=== PATIENT | female | born 1930 | race Caucasian/White ===

== ENCOUNTER 2018-10-23 15:36 | Emergency (ER) | payer OTHER ==
[~2018-10-23] VITALS: Ht 167.6 cm; Wt 87.1 kg
[2018-10-23] MEDS ORDERED: OMEGA-31000 M1 PO ×2 (15:55→15:57)
[2018-10-23] MEDS ORDERED: ASPIR 8181 MG PO (15:56)
[2018-10-23] MEDS ORDERED: CENTRUM SILVER1 EAC2 PO (15:56)
[2018-10-23] MEDS ORDERED: LOPRESSOR50 PO (15:58)
[2018-10-23] MEDS ORDERED: ELIQUIS5 MG PO (15:58)
[2018-10-23] MEDS ORDERED: LOSARTAN-HCTZ1 EAC3 PO (15:59)
[2018-10-23] MEDS ORDERED: CRESTOR20 MG PO (16:00)
[2018-10-23 16:16] LABS: ABSOLUTE EOSINOPHILS 0.1 thou/uL (0.0-0.7); ABSOLUTE LYMPHOCYTES 1.5 thou/uL (0.8-5.3); ABSOLUTE MONOCYTES 0.4 thou/uL (0.0-1.2); ABSOLUTE NEUTROPHILS 2.3 thou/uL (1.6-8.1); BASOPHILS 0.4 %; EOSINOPHILS 2.8 %; HEMATOCRIT 25.2 % (37.0-47.0); HEMOGLOBIN 7.9 gm/dL (12.0-15.0); LYMPHOCYTES 33.7 %; MCH 23.1 pg (26.0-34.0); MCHC 31.5 g/dL (28.0-37.0); MCV 73.4 fL (80.0-100.0); MONOCYTES 9.7 %; MPV 7.4 fl. (7.2-11.1); NUCLEATED RBCS 0 /100WBC; PLATELET COUNT* 255 thou/uL (150-400); POLYS 53.4 %; RBC 3.44 mil/uL (4.20-5.00); RDW-CV 19.2 % (10.5-14.5); WBC 4.3 thou/uL (4.0-11.0)
[2018-10-23 16:23] LABS: APTT 26.4 Seconds (25.0-31.3); CALCIUM 9.6 mg/dL (8.5-10.1); CREATININE 1.2 mg/dL (0.6-1.3); INR 1.1; POTASSIUM 3.1 mmol/L (3.5-5.1); PROTIME 10.8 Seconds (9.20-11.50)
[2018-10-23 16:28] LABS: ALBUMIN 3.4 g/dL (3.4-5.0); TOTAL BILIRUBIN 0.3 mg/dL (<0.1-1.0); TOTAL PROTEIN 6.8 g/dL (6.4-8.2)
[2018-10-23 17:16] VITALS: BP 101/47
--- NOTE | 2018-10-24 15:53 | EKG ---
[place] [address] ELECTROCARDIOGRAM REPORT Name: ARELY ESTEBAN Room: [facility]#: [id number] Admission: 10/23/18 Attend Phys: Discharge: 10/23/18 Date of : 34 Report #: [id number] THIS REPORT FOR: //name// [facility] ED Test Date: 2018-10-23 Test Time: 15:58:12 Pat Name: ARELY ESTEBAN Department: Room: Gender: F Branch Banker: LIBERTAD : [id number] Requested By: Torin Mohr Order Number: [id number] MD: Jet Marcelino Measurements Intervals [place] Rate: 69 P: 16 [place]: 178 QRS: -9 QRSD: 95 T: -16 QT: 371 QTc: 398 Interpretive Statements Sinus rhythm Left ventricular hypertrophy Inferior infarct, age indeterminate Baseline wander in lead(s) V1,V2,V3,V4,V5,V6 No previous ECG available for comparison Electronically Signed On 10-24-2018 15:52:56 HEARING CONSULTANT by Jet Marcelino [email or web address] <ELECTRONICALLY SIGNED> By: Jet Marcelino MD, [facility] 10/24/18 1552 1558 1558 Jet Marcelino MD, [facility] /EPI
== END 2018-10-23 17:18 | disposition home or self-care (01) ==
LOC: M.ERS 15:36
PROVIDERS: Family Medicine
DX: S00.83XA Contusion of other part of head, initial encounter (principal); Z88.0 Allergy status to penicillin; Z88.2 Allergy status to sulfonamides; I25.10 Atherosclerotic heart disease of native coronary artery without angina pectoris; Z90.710 Acquired absence of both cervix and uterus; W18.39XA Other fall on same level, initial encounter; Y93.89 Activity, other specified; Y92.89 Other specified places as the place of occurrence of the external cause; Y99.8 Other external cause status